=== PATIENT | female | born 1935 | race Caucasian/White ===

== ENCOUNTER → 2018-02-11 | Outpatient (CLI) | payer OTHER ==
[~2018-02-11] MED LIST: AMLODIPINE BESY1 TAB PO; AMOXICILLIN500 M2 PO; FISH OIL500 M1 PO; HCTZ/TRIAMTEREN1 TA3 PO; LEVOTHYROXIN0.025 MG PO; LEVOTHYROXINE0.1 M1 PO; NORVASC5 MG PO; OMEPRAZOLE10 MG PO; OMEPRAZOLE40 MG PO; PRAVACHOL40 MG PO; TOPROL XL50 M1 PO
== END | disposition home or self-care (01) ==
LOC: US 11:11
DX: M79.662 Pain in left lower leg (principal); R60.9 Edema, unspecified

== ENCOUNTER → 2018-02-17 | Outpatient (CLI) | payer OTHER | END | disposition home or self-care (01) | LOC: MRI 07:55 | DX: M17.12 Unilateral primary osteoarthritis, left knee (principal); M71.22 Synovial cyst of popliteal space [Baker], left knee; M22.42 Chondromalacia patellae, left knee; S83.242A Other tear of medial meniscus, current injury, left knee, initial encounter; X58.XXXA Exposure to other specified factors, initial encounter; Y93.89 Activity, other specified; Y92.89 Other specified places as the place of occurrence of the external cause; Y99.8 Other external cause status ==